=== PATIENT | female | born 1965 | race Caucasian/White ===

== ENCOUNTER 2018-12-21 16:37 | Emergency (ER) | payer SELFPAY ==
[~2018-12-21] VITALS: Ht 162.6 cm; Wt 79.8 kg
[2018-12-21 16:42] VITALS: BP 171/87; Ht 162.6 cm; Wt 79.8 kg
== END 2018-12-21 18:09 | disposition home or self-care (01) ==
LOC: ED 16:37
DX: S46.911A Strain of unspecified muscle, fascia and tendon at shoulder and upper arm level, right arm, initial encounter (principal); S39.92XA Unspecified injury of lower back, initial encounter; V49.9XXA Car occupant (driver) (passenger) injured in unspecified traffic accident, initial encounter; Y93.89 Activity, other specified; Y92.89 Other specified places as the place of occurrence of the external cause; Y99.8 Other external cause status